=== PATIENT | male | born 1950 | race Native Hawaiian/Other Pacific Islander ===

== ENCOUNTER 2021-02-09 12:48 | Outpatient (CLI) | payer OTHER, MEDICARE ==
[~2021-02-09] VITALS: Ht 180.3 cm; Wt 91.6 kg
== END 2021-02-09 22:05 | disposition home or self-care (01) ==
LOC: DIABINF 12:48
PROVIDERS: ATTEND Internal Medicine Endocrinology, Diabetes & Metabolism
DX: E11.65 Type 2 diabetes mellitus with hyperglycemia (principal)
CPT/HCPCS: 82948; 96365; 96366; 96521; J1718; J1815

== ENCOUNTER 2021-02-10 08:05 | Outpatient (CLI) | payer OTHER, MEDICARE ==
[~2021-02-10] VITALS: Ht 180.3 cm; Wt 91.6 kg
== END 2021-02-10 19:29 | disposition home or self-care (01) ==
LOC: DIABINF 08:05
PROVIDERS: ATTEND Internal Medicine Endocrinology, Diabetes & Metabolism
DX: E11.65 Type 2 diabetes mellitus with hyperglycemia (principal)
CPT/HCPCS: 82948; 96365; 96366; 96521; J1718; J1815

== ENCOUNTER 2021-02-14 12:39 | Outpatient (CLI) | payer OTHER, MEDICARE ==
[~2021-02-14] VITALS: Ht 180.3 cm; Wt 91.6 kg
== END 2021-02-14 21:38 | disposition home or self-care (01) ==
LOC: DIABINF 12:39
PROVIDERS: ATTEND Internal Medicine Endocrinology, Diabetes & Metabolism
DX: E11.65 Type 2 diabetes mellitus with hyperglycemia (principal)
CPT/HCPCS: 82948; 96365; 96366; 96521; J1718; J1815

== ENCOUNTER 2021-02-15 07:55 | Outpatient (CLI) | payer OTHER, MEDICARE ==
[~2021-02-15] VITALS: Ht 180.3 cm; Wt 91.6 kg
== END 2021-02-15 19:48 | disposition home or self-care (01) ==
LOC: DIABINF 07:55
PROVIDERS: ATTEND Internal Medicine Endocrinology, Diabetes & Metabolism
DX: E11.65 Type 2 diabetes mellitus with hyperglycemia (principal)
CPT/HCPCS: 82948; 96365; 96366; 96521; 99214; J1718; J1815

== ENCOUNTER 2021-02-21 13:01 | Outpatient (CLI) | payer OTHER, MEDICARE ==
[~2021-02-21] VITALS: Ht 180.3 cm; Wt 91.6 kg
== END 2021-02-21 19:24 | disposition home or self-care (01) ==
LOC: DIABINF 13:01
PROVIDERS: ATTEND Internal Medicine Endocrinology, Diabetes & Metabolism
DX: E11.65 Type 2 diabetes mellitus with hyperglycemia (principal); E11.40 Type 2 diabetes mellitus with diabetic neuropathy, unspecified; E78.2 Mixed hyperlipidemia; I10 Essential (primary) hypertension; K21.9 Gastro-esophageal reflux disease without esophagitis; G47.09 Other insomnia; M15.0 Primary generalized (osteo)arthritis
CPT/HCPCS: 82948; 96365; 96366; 96521; 99214; J1718; J1815

== ENCOUNTER 2021-02-22 08:01 | Outpatient (CLI) | payer OTHER, MEDICARE ==
[~2021-02-22] VITALS: Ht 180.3 cm; Wt 91.6 kg
== END 2021-02-22 19:05 | disposition home or self-care (01) ==
LOC: DIABINF 08:01
PROVIDERS: ATTEND Internal Medicine Endocrinology, Diabetes & Metabolism
DX: E11.65 Type 2 diabetes mellitus with hyperglycemia (principal); E11.40 Type 2 diabetes mellitus with diabetic neuropathy, unspecified; E78.2 Mixed hyperlipidemia; I10 Essential (primary) hypertension; K21.9 Gastro-esophageal reflux disease without esophagitis; G47.09 Other insomnia; M15.0 Primary generalized (osteo)arthritis
CPT/HCPCS: 82948; 96365; 96366; 96521; 99214; J1718; J1815

== ENCOUNTER 2021-03-08 12:07 | Outpatient (CLI) | payer OTHER, MEDICARE ==
[~2021-03-08] VITALS: Ht 180.3 cm; Wt 91.6 kg
== END 2021-03-08 21:03 | disposition home or self-care (01) ==
LOC: DIABINF 12:07
PROVIDERS: ATTEND Internal Medicine Endocrinology, Diabetes & Metabolism
DX: E11.65 Type 2 diabetes mellitus with hyperglycemia (principal); E11.40 Type 2 diabetes mellitus with diabetic neuropathy, unspecified; E78.2 Mixed hyperlipidemia; I10 Essential (primary) hypertension; K21.9 Gastro-esophageal reflux disease without esophagitis; G47.09 Other insomnia; M15.0 Primary generalized (osteo)arthritis
CPT/HCPCS: 82948; 96365; 96366; 96521; 99214; J1718; J1815

== ENCOUNTER 2021-03-14 12:48 | Outpatient (CLI) | payer OTHER, MEDICARE ==
[~2021-03-14] VITALS: Ht 180.3 cm; Wt 91.6 kg
== END 2021-03-14 22:29 | disposition home or self-care (01) ==
LOC: DIABINF 12:48
PROVIDERS: ATTEND Internal Medicine Endocrinology, Diabetes & Metabolism
DX: E11.65 Type 2 diabetes mellitus with hyperglycemia (principal); E11.40 Type 2 diabetes mellitus with diabetic neuropathy, unspecified; E78.2 Mixed hyperlipidemia; I10 Essential (primary) hypertension; K21.9 Gastro-esophageal reflux disease without esophagitis; G47.09 Other insomnia; M15.0 Primary generalized (osteo)arthritis
CPT/HCPCS: 82948; 96365; 96366; 96521; 99214; J1718; J1815

== ENCOUNTER 2021-03-29 12:36 | Outpatient (CLI) | payer OTHER, MEDICARE ==
[~2021-03-29] VITALS: Ht 180.3 cm; Wt 91.6 kg
== END 2021-03-29 22:03 | disposition home or self-care (01) ==
LOC: DIABINF 12:36
PROVIDERS: ATTEND Internal Medicine Endocrinology, Diabetes & Metabolism
DX: E11.65 Type 2 diabetes mellitus with hyperglycemia (principal); E11.40 Type 2 diabetes mellitus with diabetic neuropathy, unspecified; E78.2 Mixed hyperlipidemia; I10 Essential (primary) hypertension; K21.9 Gastro-esophageal reflux disease without esophagitis; G47.09 Other insomnia; M15.0 Primary generalized (osteo)arthritis
CPT/HCPCS: 82948; 96365; 96366; 96521; J1815; J1817

== ENCOUNTER 2021-04-04 11:32 | Outpatient (CLI) | payer OTHER, MEDICARE ==
[2021-04-04 11:42] LABS: PLATELET COUNT 230 K/uL (142-355)
== END 2021-04-04 19:54 | disposition home or self-care (01) ==
LOC: LABW 11:32
PROVIDERS: ATTEND Nurse Practitioner
DX: E11.9 Type 2 diabetes mellitus without complications (principal)
CPT/HCPCS: 36415; 80053; 80061; 83036; 85027

== ENCOUNTER 2021-04-04 12:20 | Outpatient (CLI) | payer OTHER, MEDICARE ==
[~2021-04-04] VITALS: Ht 180.3 cm; Wt 91.6 kg
== END 2021-04-04 19:54 | disposition home or self-care (01) ==
LOC: DIABINF 12:20
PROVIDERS: ATTEND Nurse Practitioner
DX: E11.65 Type 2 diabetes mellitus with hyperglycemia (principal); E11.40 Type 2 diabetes mellitus with diabetic neuropathy, unspecified; E78.2 Mixed hyperlipidemia; I10 Essential (primary) hypertension; K21.9 Gastro-esophageal reflux disease without esophagitis; G47.09 Other insomnia; M15.0 Primary generalized (osteo)arthritis
CPT/HCPCS: 82948; 96365; 96366; 96521; J1815; J1817

== ENCOUNTER 2021-04-26 12:23 | Outpatient (CLI) | payer OTHER, MEDICARE ==
[~2021-04-26] VITALS: Ht 180.3 cm; Wt 91.6 kg
== END 2021-04-26 22:43 | disposition home or self-care (01) ==
LOC: DIABINF 12:23
PROVIDERS: ATTEND Internal Medicine Endocrinology, Diabetes & Metabolism
DX: E11.65 Type 2 diabetes mellitus with hyperglycemia (principal); E11.40 Type 2 diabetes mellitus with diabetic neuropathy, unspecified; E78.2 Mixed hyperlipidemia; I10 Essential (primary) hypertension; K21.9 Gastro-esophageal reflux disease without esophagitis; G47.09 Other insomnia; M15.0 Primary generalized (osteo)arthritis
CPT/HCPCS: 82948; 96365; 96366; 96521; J1815; J1817

== ENCOUNTER 2021-05-03 12:29 | Outpatient (CLI) | payer OTHER, MEDICARE ==
[~2021-05-03] VITALS: Ht 180.3 cm; Wt 91.6 kg
== END 2021-05-03 19:24 | disposition home or self-care (01) ==
LOC: DIABINF 12:29
PROVIDERS: ATTEND Internal Medicine Endocrinology, Diabetes & Metabolism
DX: E11.65 Type 2 diabetes mellitus with hyperglycemia (principal); E11.40 Type 2 diabetes mellitus with diabetic neuropathy, unspecified; E78.2 Mixed hyperlipidemia; I10 Essential (primary) hypertension; K21.9 Gastro-esophageal reflux disease without esophagitis; G47.09 Other insomnia; M15.0 Primary generalized (osteo)arthritis
CPT/HCPCS: 82948; 96365; 96366; 96521; J1815; J1817

== ENCOUNTER 2021-05-17 12:30 | Outpatient (CLI) | payer OTHER, MEDICARE | END 2021-05-17 16:00 | disposition home or self-care (01) | LOC: DIABINF 12:30 | PROVIDERS: ATTEND Nurse Practitioner | DX: E11.65 Type 2 diabetes mellitus with hyperglycemia (principal); E11.40 Type 2 diabetes mellitus with diabetic neuropathy, unspecified; I10 Essential (primary) hypertension; E78.2 Mixed hyperlipidemia; G47.09 Other insomnia | CPT/HCPCS: 82948; 96365; 96521; J1817 ==

== ENCOUNTER 2021-05-30 12:29 | Outpatient (CLI) | payer OTHER, MEDICARE | END 2021-05-30 21:27 | disposition home or self-care (01) | LOC: DIABINF 12:29 | PROVIDERS: ATTEND Internal Medicine Endocrinology, Diabetes & Metabolism | DX: E11.65 Type 2 diabetes mellitus with hyperglycemia (principal); E11.40 Type 2 diabetes mellitus with diabetic neuropathy, unspecified; E78.2 Mixed hyperlipidemia; I10 Essential (primary) hypertension; K21.9 Gastro-esophageal reflux disease without esophagitis; G47.09 Other insomnia | CPT/HCPCS: 82948; 96365; 96366; 96521; J1817 ==

== ENCOUNTER 2021-06-13 12:44 | Outpatient (CLI) | payer OTHER, MEDICARE ==
[~2021-06-13] VITALS: Ht 180.3 cm; Wt 93.0 kg
== END 2021-06-13 21:05 | disposition home or self-care (01) ==
LOC: DIABINF 12:44
PROVIDERS: ATTEND Internal Medicine Endocrinology, Diabetes & Metabolism
DX: E11.65 Type 2 diabetes mellitus with hyperglycemia (principal); E11.40 Type 2 diabetes mellitus with diabetic neuropathy, unspecified; I10 Essential (primary) hypertension; E78.2 Mixed hyperlipidemia; G47.09 Other insomnia
CPT/HCPCS: 82948; 96365; 96366; 96521; J1815; J1817

== ENCOUNTER 2021-07-05 12:44 | Outpatient (CLI) | payer OTHER, MEDICARE ==
[~2021-07-05] VITALS: Ht 180.3 cm; Wt 93.0 kg
== END 2021-07-05 21:24 | disposition home or self-care (01) ==
LOC: DIABINF 12:44
PROVIDERS: ATTEND Internal Medicine Endocrinology, Diabetes & Metabolism
DX: E11.65 Type 2 diabetes mellitus with hyperglycemia (principal); E11.40 Type 2 diabetes mellitus with diabetic neuropathy, unspecified; I10 Essential (primary) hypertension; E78.2 Mixed hyperlipidemia; G47.09 Other insomnia
CPT/HCPCS: 82948; 96365; 96366; 96521; J1815; J1817